=== PATIENT | female | born 2000 | race Caucasian/White ===

== ENCOUNTER 2024-04-19 11:01 | Outpatient (CLI) | payer SELFPAY ==
[2024-04-19 14:48] LABS: HIV 1/2 Ab P24 Ag Result Negative (Negative)
[2024-04-19 14:49] LABS: Hepatitis B Surface Antigen Negative (Negative)
[2024-04-19 14:55] LABS: HAV RESULT Negative (Negative); Hepatitis B Core IgM Result Negative (Negative)
[2024-04-19 15:06] LABS: Hepatitis C Virus Antibody Negative (Negative)
[2024-04-19 17:26] LABS: Rapid Plasma Reagin Non-Reactive (NonReactive)
== END 2024-04-19 11:02 | disposition home or self-care (01) ==
LOC: ANHGOSHLAB 11:02
PROVIDERS: Visit Provider Student in an Organized Health Care Education/Training Program
DX: Z11.3 Encounter for screening for infections with a predominantly sexual mode of transmission (principal)
CPT/HCPCS: 36415; 80074; 86592; 86695; 86696; 86703; G0432

== ENCOUNTER 2024-07-24 08:14 | Emergency (ER) | payer OTHER, BC, SELFPAY ==
[2024-07-24 08:26] VITALS: BP 113/73; PULSE 79; RESP 16; TEMP 36.6; O2SAT 100
--- NOTE | 2024-07-24 09:42 | ED.GENADULT ---
HPI - General Adult General Chief complaint: Unspecified Stated complaint: needle stick injury Time Seen by Provider: 07/24/24 08:58 Source: patient Mode of arrival: ambulatory Limitations: no limitations History of Present Illness HPI narrative: Patient is a 23-year-old female, with PMH of anxiety, who presents the ED with complaints of accidental needlestick injury. Patient reports she was taking out the trash yesterday at her workplace when she was stuck by a needle into her right 2nd digit finger pad. They did find a hypodermic needle that looks like a insulin needle in the trash can, but are not sure if this is what stuck her. The needle did not appear contaminated. Patient did have bleed from her finger. She is unsure of her last tetanus shot. Related Data Allergies Allergy/AdvReac Type Severity Reaction Status Date / Time No Known Allergies Allergy Verified 07/24/24 08:33 Review of Systems Review of Systems: All systems reviewed & are unremarkable except as noted in HPI. All systems reviewed & are unremarkable except as noted in HPI and below PMFSH Surgical History Surgical History H/O gynecological procedure IUD insertion H/O wisdom tooth extraction Family History Family History Mother Diabetes mellitus Social History Social History Smoking status: Never smoker Alcohol intake: current Substance use: current Substance use type: marijuana Do You Feel Safe in your Home?: Yes Lack of Transportation: No Lack of Food: Never True Current Housing: I Have Housing Concerned About Future Housing: No Difficulty Paying Gas/Electric Bills: No Difficulty Paying for Meds: No Currently Unemployed: No Education: Associate Degree Difficulty w/ Childcare or Family Care: No Living arrangements: with roommate(s) Occupation/Education: student Gender identity (if verbalized by the patient): Female Sexual Orientation (if Verbalized by the Patient): Straight or Heterosexual Exam Narrative: GENERAL: Well appearing, well-nourished, non-toxic, in no acute distress. HEAD: Normocephalic, atraumatic. RESPIRATORY: Airway patent, respirations nonlabored. CARDIOVASCULAR: Regular rate and rhythm MUSCULOSKELETAL: Moves all extremities. No gross deformities. SKIN: Warm, dry, normal color. puncture wound to right 2nd digit finger pad with minimal area of surrounding ecchymosis. No bleeding. No drainage. NEURO: A&O X3. Speech clear. PSYCHIATRIC: Appropriate mood and affect. Normal interaction. Course Vital Signs Vital signs: Vital Signs Temperature 97.9 F 07/24/24 08:26 Pulse Rate 79 07/24/24 08:26 Respiratory Rate 16 07/24/24 08:26 Blood Pressure 113/73 07/24/24 08:26 Pulse Oximetry 100 07/24/24 08:26 Oxygen Delivery Room Air 07/24/24 08:26 Temperature 97.6 F 07/24/24 11:17 Pulse Rate 68 07/24/24 11:17 Respiratory Rate 18 07/24/24 11:17 Blood Pressure 112/70 07/24/24 11:17 Pulse Oximetry 100 07/24/24 11:17 Oxygen Delivery Room Air 07/24/24 08:26 Medical Decision Making MDM Narrative Medical decision making narrative: Needlestick protocol was initiated and thankfully patient's laboratory testing were negative here. Tetanus was updated in the ED. Advised patient she will need to follow-up with primary care doctor for follow-up testing at later intervals to ensure no contamination from needle. Given return precautions. Discharged in stable condition. Medical Records Medical records reviewed: Yes I reviewed the external patient's medical records. Vital Signs Vital Signs: Vital Signs Temperature 97.9 F 07/24/24 08:26 Pulse Rate 79 07/24/24 08:26 Respiratory Rate 16 07/24/24 08:26 Blood Pressure 113/73 07/24/24 08:26 Pulse Oximetry 100 07/24/24 08:26 Oxygen Delivery Room Air 07/24/24 08:26 Temperature 97.6 F 07/24/24 11:17 Pulse Rate 68 07/24/24 11:17 Respiratory Rate 18 07/24/24 11:17 Blood Pressure 112/70 07/24/24 11:17 Pulse Oximetry 100 07/24/24 11:17 Oxygen Delivery Room Air 07/24/24 08:26 Lab Data Lab results reviewed: Yes I reviewed the patient's lab results. Labs: Lab Results 07/24/24 Range/Units 09:26 Hep Bs Antigen Negative (Negative) Hepatitis C Ab Screen Negative (Negative) HIV 1&2 Ab/P24 Ag 4thGn Negative (Negative) Discharge Plan Discharge Clinical Impression: Accidental needlestick injury with exposure to body fluid Patient Disposition: Home, Self-Care Condition: Stable Instructions: Antibiotic Form, Needle Stick Injuries (ED) Additional Instructions: Your testing for hepatitis and HIV were negative today. It is recommended that you follow-up with primary care doctor for repeat laboratory testing, around 1-3 months and 6 months after the incident. Follow-up with PCP for this. Return to the ED if you experience any new or worsening concerns. Prescriptions: No Action sertraline 100 mg tablet 100 mg PO DAILY Qty: 90 0RF sertraline 100 mg tablet 100 mg PO DAILY Qty: 90 3RF sertraline 100 mg tablet 100 mg PO DAILY Qty: 30 0RF Follow-up/Referrals: Viral Valiente MD [Physician] - (PRIMARY CARE) Laurence Kyle MD [Physician] - (PRIMARY CARE) UNKNOWN,DOCTOR [Primary Care Provider] - Uma Torres DO [Physician] - (PRIMARY CARE) Time of Disposition: 09:43
[2024-07-24] MEDS: TETANUS,DIPHTHERIA,AC PERTUSSIS ADULT (0.5 ML) BOOSTRIX IM (09:46)
[2024-07-24 09:48] VITALS: BP 114/70; PULSE 62; RESP 20; O2SAT 96
[2024-07-24 10:30] LABS: Hepatitis B Surface Antigen Negative (Negative)
[2024-07-24 10:47] LABS: HIV 1/2 Ab P24 Ag Result Negative (Negative); Hepatitis C Virus Antibody Negative (Negative)
[2024-07-24 11:17] VITALS: BP 112/70; PULSE 68; RESP 18; TEMP 36.4; O2SAT 100
== END 2024-07-24 11:20 | disposition home or self-care (01) ==
PROVIDERS: Emergency Provider Physician Assistant
DX: S61.230A Puncture wound without foreign body of right index finger without damage to nail, initial encounter (principal); W46.1XXA Contact with contaminated hypodermic needle, initial encounter; Z23 Encounter for immunization
CPT/HCPCS: 36415; 86703; 86803; 87340; 90471; 90715; 99283; G0432